=== PATIENT | female | born 1930 | race Caucasian/White ===

== ENCOUNTER 2016-07-27 13:33 | Outpatient (CLI) | payer OTHER ==
[2016-07-27 14:07] VITALS: BP 164/68; PULSE 83; RESP 20
--- NOTE | 2016-07-27 14:56 | PN ---
Date/Time of Note Date/Time of Note DATE: 07/27/16 TIME: 14:49 Outpatient Progress Note Chief Complaint Abdominal pain/hypertension/back pain/asthma/hypothyroidism/ASHD/hyperlipidemia/ Parkinson's disease HPI Abdominal pain/patient has abdominal pain, mostly right upper quadrant, no nausea vomiting, no fever chills, patient was recently hospitalized, patient has gallstone, Hypertension/no headache or dizziness or lightheadedness, blood pressure slightly elevated, Back pain/patient has slight back pain, no tingling or numbness, no loss of bladder or bowel control, Asthma/patient does have history of asthma, no minimal cough, patient has inhaler, Hypothyroidism/history of hypothyroidism, no pain, no puffiness of eyes, no constipation, on medication, no side effect, ASHD/no chest pain, no PND orthopnea or ankle edema, status post coronary artery bypass, Hyperlipidemia/no xanthoma, on medication, no side effect of medication, Parkinson/patient has Parkinson's disease, no dysphagia, no shuffling gait, Review of Systems Const: No Fever, no chills, no Wt. loss, no Fatigue, normal appetite, no diaphoresis. Eyes: No pain, no discharge, no redness, no visual change, no foreign body. ENT: No pain, no bleeding, no congestion, no sore throat, no dysphagia, no discharge or rhinitis. Lymph: No adenopathy, no tender nodes, no lymphedema. Resp: Slight SOB, no cough, no sputum, no wheezing, no chest pain. CV: No chest pain, no palpitaions, no CASILLAS, no PND, no edema. GI: Normal appetite, right upper quadrant pain, no nausea, no vomiting, no diarrhea, no blood, no constipation. : No frequency, no urgency, no dysuria, no hematuria, no flank pain, no discharge, no bleeding. Musc: No bone/joint pain, no back pain, no neck pain, no knee pain, no restricted ROM. Skin: No rash, no skin lesions, no erythema, no laceration, no bruising, no pruritus. Neuro: No BRUNNER, no dizziness, no syncope, no seizure, no focal-weakness. Endo: No polyuria, no polydypsia, no dry-skin, no temp-intolerance. Psych: No hallucinations, no depression, no anxiety, no suicidal ideation. Ext: No edema, no pain, no ulcer, no weakness. Physical Exam General Appearance: 86 year-old female who appears well-developed, well- nourished, in no acute distress. HEENT: Head normocephalic, atraumatic. Pupils equal, round, reactive to light and accommodate. Sclerae are no jaundice. Nasal turbinates pink without erythema or nasal discharge. Mucous membranes pink and moist without lesions. Oropharynx clear without any exudate or discharge. NECK: Supple. Trachea midline, No thyromegaly, No cervical lymphadenopathy, No mass, No carotid bruits, No JVD, Carotid pulses 2+ bilaterally. PULMONARY: Clear to auscultaion bilaterally, No retractions, Chest expansion symmetric bilaterally, no rales, no ronchi, no dulness on percussion. CARDIAC: Normal SI and S2, Regular rate and rythm, no murmur, gallop, or rub. GASTROINTESTINAL: Abdomen is soft, right upper quadrant discomfort, Non Rigid, No distention, Positive bowel sounds x4 quadrants, Liver normal. SKIN: Warm, dry, no rash, no bruise, no echmosis. EXTREMITIES: Bilateral lower extremities normal, no edema, no phlabitus, pulse palpable, no contracture. MUSCULOSKELETAL: Spine Normal, Non-tender, Normal range of motion, No swelling, no deformity, no clubbing, or cyanosis, the patient has no edema to bilateral lower extremities, dorsalis pedis pulses palpable bilaterally. NEUROLOGIC: The patient is awake, alert, oriented, responding to yes/no questions appropriately, moving all extremities, cranial nerve intact, normal strenght, normal power, normal coordination, normal gait. PMH Allergy none Past medical history Asthma/aortic aneurysm/ASHD/coronary artery bypass/diverticulosis/hypertension/ hyperlipidemia/hypothyroidism/Parkinson/ Social Hx No smoking no drinking, Family Hx Impression Abdominal pain/gallstones/hypertension/back pain/asthma/hypothyroidism/ASHD/ hyperlipidemia/Parkinson/aortic aneurysm/status post coronary artery bypass Plan Patient has [id number] right upper quadrant pain, patient just take Tylenol, will prescribe Hamel 5/325 1 p.o. twice daily as needed for pain #20 Patient encouraged to follow with the primary care physician, Patient education done, if any fever or jaundice to call us right away, Increase activity slowly, discussed with the patient was a slightly elevated blood pressure, monitor closely, follow with the primary care physician, KENDELL MOSQUERA MD Jul 27, 2016 14:56
[2016-07-27] MEDS ORDERED: AMLO-147 PO (15:11)
[2016-07-27] MEDS ORDERED: ADV25050 INHALATION (15:11)
[2016-07-27] MEDS ORDERED: TIOT18CA INHALATION (15:11)
[2016-07-27] MEDS ORDERED: DOCU-159 PO (15:11)
[2016-07-27] MEDS ORDERED: OMEP20CA16 PO (15:11)
[2016-07-27] MEDS ORDERED: IPRA12.93 INHALATION (15:11)
[2016-07-27] MEDS ORDERED: ASPI-664 PO (15:11)
[2016-07-27] MEDS ORDERED: FURO-110 PO (15:11)
== END 2016-07-27 16:35 | disposition home or self-care (01) ==
LOC: DCC 13:33
PROVIDERS: ATTEND Internal Medicine
DX: I10 Essential (primary) hypertension (principal); I25.10 Atherosclerotic heart disease of native coronary artery without angina pectoris; E03.9 Hypothyroidism, unspecified; G20 Parkinson's disease; I71.9 Aortic aneurysm of unspecified site, without rupture

== ENCOUNTER 2016-08-14 14:40 | Outpatient (CLI) | payer OTHER ==
[~2016-08-14 14:40] MED LIST: ADV25050 INHALATION; AMLO-147 PO; ASPI-664 PO; DOCU-159 PO; FURO-110 PO; IPRA12.93 INHALATION; OMEP20CA16 PO; TIOT18CA INHALATION
[2016-08-14 14:45] VITALS: BP 168/66; PULSE 80; RESP 20
--- NOTE | 2016-08-14 16:14 | PN ---
Date/Time of Note Date/Time of Note DATE: 08/14/16 TIME: 16:10 Outpatient Progress Note Chief Complaint Abdominal pain/hypertension/back pain/asthma/hypothyroidism/ASHD/hyperlipidemia HPI Abdominal pain/patient has minimal abdominal pain, mostly in the left upper quadrant, mostly on her rib cage, no nausea or vomiting, no abdominal distention , no melena, no diarrhea, Hypertension/no headache or dizziness or lightheadedness, no local focal weakness, Back pain/patient has lumbosacral back pain, no tingling or numbness, no loss of bladder or bowel control, Asthma/no cough expectoration or hemoptysis, no wheezing, Hypothyroidism/no puffiness of eyes, constipation, on medication, side effect, ASHD/no chest pain, no PND orthopnea or ankle edema, Hyperlipidemia/no xanthoma, no puffiness of eyes, no abdominal pain, no cramps, medication, Review of Systems Const: No Fever, no chills, no Wt. loss, no Fatigue, normal appetite, no diaphoresis. Eyes: No pain, no discharge, no redness, no visual change, no foreign body. ENT: No pain, no bleeding, no congestion, no sore throat, no dysphagia, no discharge or rhinitis. Lymph: No adenopathy, no tender nodes, no lymphedema. Resp: No SOB, no cough, no sputum, no wheezing, no chest pain. CV: No chest pain, no palpitaions, no CASILLAS, no PND, no edema. GI: Normal appetite, minimal left upper quadrant pain, no nausea, no vomiting, no diarrhea, no blood, no constipation. : No frequency, no urgency, no dysuria, no hematuria, no flank pain, no discharge, no bleeding. Musc: Left-sided lower rib cage discomfort, no back pain, no neck pain, no knee pain, no restricted ROM. Skin: No rash, no skin lesions, no erythema, no laceration, no bruising, no pruritus. Neuro: No BRUNNER, no dizziness, no syncope, no seizure, no focal-weakness. Endo: No polyuria, no polydypsia, no dry-skin, no temp-intolerance. Psych: No hallucinations, no depression, no anxiety, no suicidal ideation. Ext: No edema, no pain, no ulcer, no weakness. Physical Exam Vital Signs Date Time Temp Pulse Resp B/P Pulse Ox O2 Delivery O2 Flow Rate FiO2 08/14/16 14:45 98.6 80 20 168/66 91 Room Air General Appearance: A 86] year-old female who appears well-developed, well- nourished, in no acute distress. HEENT: Head normocephalic, atraumatic. Pupils equal, round, reactive to light and accommodate. Sclerae are no jaundice. Nasal turbinates pink without erythema or nasal discharge. Mucous membranes pink and moist without lesions. Oropharynx clear without any exudate or discharge. NECK: Supple. Trachea midline, No thyromegaly, No cervical lymphadenopathy, No mass, No carotid bruits, No JVD, Carotid pulses 2+ bilaterally. PULMONARY: Clear to auscultaion bilaterally, No retractions, Chest expansion symmetric bilaterally, no rales, no ronchi, no dulness on percussion. CARDIAC: Normal SI and S2, Regular rate and rythm, no murmur, gallop, or rub, no S3-S4,. GASTROINTESTINAL: Abdomen is soft, minimal left upper quadrant discomfort, especially in the rib,, Non Rigid, No distention, Positive bowel sounds x4 quadrants, Liver normal. SKIN: Warm, dry, no rash, no bruise, no echmosis. EXTREMITIES: Bilateral lower extremities normal, no edema, no phlabitus, pulse palpable, no contracture. MUSCULOSKELETAL: Spine Normal, Non-tender, Normal range of motion, No swelling, no deformity, no clubbing, or cyanosis, the patient has no edema to bilateral lower extremities, dorsalis pedis pulses palpable bilaterally. NEUROLOGIC: The patient is awake, alert, oriented, responding to yes/no questions appropriately, moving all extremities, cranial nerve intact, normal strenght, normal power, normal coordination, normal gait. Allergies Coded Allergies: No Known Drug Allergies (Verified Allergy, Unknown, 07/27/16) PMH No change Social Hx No change Family Hx No change Assessment/Plan Impression Abdominal pain improving Hypertension Back pain Asthma Hypotelorism ASHD Hyperlipidemia Plan continue all medication, patient has all the supply, all medication, patient encouraged to follow with the primary care physician, patient education done about a bowel disease, CBC CMP TSH, If any pain or fever to contact us immediately, Patient is all the medication and supply, Medications Home Meds Reported Medications Tiotropium [place]* (Spiriva*) 18 Mcg Cap.w.dev, 1 CAP INHALATION DAILY, #30 CAP 07/27/16 Omeprazole* (Omeprazole*) 20 Mg Capsule.dr, 20 MG PO BID, #60 CAP 07/27/16 Ipratropium [place]* (Atrovent HFA*) 12.9 Gm Aer.w.adap, 2 PUFF INHALATION BID, #1 INHALER 07/27/16 Furosemide* (Lasix*) 20 Mg Tablet, 20 MG PO DAILY, TAB 07/27/16 Salmeterol Xinaf/Fluticasone* (Advair*) 250-50 Diskus Inhaler, 1 INH INHALATION BID, #1 INHALER 07/27/16 Docusate Sodium* (Docusate Sodium*) 100 Mg Capsule, 100 MG PO BID, #60 CAP 07/27/16 Aspirin (Low Dose Aspirin) 81 Mg Tablet.dr, 81 MG PO DAILY, #30 TAB 07/27/16 Amlodipine Besylate* (Amlodipine Besylate*) 10 Mg Tablet, 10 MG PO DAILY, #30 TAB 07/27/16 KENDELL MOSQUERA MD Aug 14, 2016 16:14
== END 2016-08-14 16:32 | disposition home or self-care (01) ==
LOC: DCC 14:40
PROVIDERS: ATTEND Internal Medicine
DX: I25.10 Atherosclerotic heart disease of native coronary artery without angina pectoris (principal); I10 Essential (primary) hypertension; M54.9 Dorsalgia, unspecified; E78.5 Hyperlipidemia, unspecified